=== PATIENT | male | born 1960 | race Caucasian/White ===

== ENCOUNTER 2023-03-17 16:50 | Outpatient (OUT) | payer OTHER, SELFPAY ==
--- NOTE | 2023-03-17 17:13 | XR_ITS ---
The [address] [address] Patient Name: DENICE HANSON MRN: [id number] date: 1960 Sex: M Assigned Patient Location: [facility] Current Patient Location: Accession/Order Number: [id number] Exam Date: 03/17/2023 17:00 Report Date: 03/18/2023 08:26 At the request of: JESSICA BERGMAN Procedure: XR soft tissue neck EXAMINATION: XR soft tissue neck HISTORY: Sore throat , acute left neck pain COMPARISON: No relevant comparison available. FINDINGS: EPIGLOTTIS: Normal ARYEPIGLOTTIC FOLDS: Normal SUBGLOTTIC AIRWAY: Normal ADENOID TONSILS: Normal PALATINE TONSILS: Normal CERVICAL SPINE: Minimal degenerative changes. XR/XR soft tissue neck IMPRESSION: 1. No acute or suspicious findings to account for patient's symptoms. Electronically authenticated by: CHRISTA PANIAGUA Date: 03/18/2023 08:26
== END 2023-03-17 16:51 | disposition home or self-care (01) ==
PROVIDERS: PCP Family Medicine; Visit Provider Family Medicine
DX: J02.9 Acute pharyngitis, unspecified (principal)
CPT/HCPCS: 70360